=== PATIENT | male | born 1945 | race Caucasian/White ===

== ENCOUNTER 2021-08-01 06:23 | Day surgery (SDC) | payer OTHER ==
[~2021-08-01] VITALS: Ht 172.7 cm; Wt 98.9 kg
--- NOTE | ~2021-08-01 | O ---
[facility] [place] [address] OPERATIVE REPORT Name: GIUSEPPE FUENTES Room #: 150-3 [facility].#: [id number] Admission: 08/01/21 Attend Phys: Matt Mace MD Discharge: Date of : 47 Report #: [id number] THIS REPORT FOR: cc: Alejo Schulte,Alejo Quintana,Matt Caldwell MD ~ cc: Alejo Miller DATE OF SERVICE: 08/01/2021 SURGEON: Matt Mace MD SPORTS JOURNALIST: None. PREOPERATIVE DIAGNOSIS: Bilateral lower lid entropion. POSTOPERATIVE DIAGNOSIS: Bilateral lower lid entropion. OPERATION PERFORMED: Bilateral lower lid entropion repair. ANESTHESIA: Local with IV sedation. COMPLICATIONS: None. INDICATIONS FOR PROCEDURE: This patient has bilateral lower lid entropion with chronic irritation and discharge. The current procedures are being undertaken in order to improve the patient's level of comfort and visual function. Informed consent was obtained to include but not limited to the loss of vision, bleeding, infection, scarring, failure to improve the problem and need for further surgery. DESCRIPTION OF OPERATION: The patient was taken to the operating room, where 2% Xylocaine with epinephrine mixed with equal parts of 0.75% Marcaine with Wydase was administered transcutaneously and transconjunctivally to each lower lid and lateral canthal area. The patient was then prepped and draped in the usual sterile fashion. A Harlan clamp was used to clamp the left lateral canthus, following which a sharp canthotomy and cantholysis were performed. Hemostasis was achieved with a monopolar cautery, as it was throughout the case. A tarsal strip was prepared laterally, removing the lash bearing portion of the redundant lid margin and the redundant tarsal plate. A transconjunctival dissection was then undertaken just inferior to the lower border of the tarsal plate. The lower lid retractors were disinserted from the inferior border of the tarsal plate. The lower lid retractors were then advanced and reattached to the anterior surface of the tarsal plate with mattress 5-0 chromic sutures passed transconjunctivally and secured in the infraciliary margin. The tarsal strip [address] [address] OPERATIVE REPORT Name: GIUSEPPE FUENTES Room #: 150-3 [facility].#: [id number] Admission: 08/01/21 Attend Phys: Matt Mace MD Discharge: Date of : 47 Report #: [id number] was then secured laterally with 2 interrupted 5-0 Prolene sutures. The subcutaneous structures and the skin were then closed with multiple interrupted 6-0 plain gut sutures so the lateral canthal angle was sharply reformed. The wounds were then cleaned and dressed with ophthalmic antibiotic ointment. The patient was then transported to the recovery area, having tolerated the procedure well with no anesthetic or operative complications being noted. By: [id number] MD lana Pearl
[~2021-08-01 06:23] MED LIST: LISINOPRIL-HCT1 EAC1 PO; METOPROLOL SUC100 MG PO; ZOCOR 20 MG TAB20 M1 PO; ZOLOFT 50 MG TA50 MG PO
[2021-08-01 08:36] LABS: CALCIUM 8.5 mg/dL (8.5-10.1); CREATININE 1.1 mg/dL (0.7-1.3); POTASSIUM 3.7 mmol/L (3.5-5.1)
[2021-08-01 08:37] VITALS: BP 145/71
[2021-08-01 08:41] LABS: ALBUMIN 3.4 g/dL (3.4-5.0); TOTAL BILIRUBIN 0.7 mg/dL (0.2-1.0); TOTAL PROTEIN 7.2 g/dL (6.4-8.2)
== END 2021-08-01 10:50 | disposition home or self-care (01) ==
LOC: OR 06:23 → TBA 06:27 → OR 06:35
PROVIDERS: ATTEND Ophthalmology
DX: H02.002 Unspecified entropion of right lower eyelid (principal); H02.005 Unspecified entropion of left lower eyelid; I10 Essential (primary) hypertension; E78.5 Hyperlipidemia, unspecified; I25.2 Old myocardial infarction; F32.9 Major depressive disorder, single episode, unspecified; F41.9 Anxiety disorder, unspecified; Z98.890 Other specified postprocedural states; Z79.899 Other long term (current) drug therapy; Z98.41 Cataract extraction status, right eye; Z20.822 Contact with and (suspected) exposure to COVID-19; Z98.42 Cataract extraction status, left eye
CPT/HCPCS: 50010; 50101; 50386; 50398; 51636; 56527; 56531; 62110; 62850; 70005